=== PATIENT | male | born 1965 | race African-American/Black ===

== ENCOUNTER 2016-11-27 20:59 | Emergency (ER) | payer OTHER ==
[~2016-11-27] VITALS: Ht 185.4 cm; Wt 95.7 kg
[2016-11-27 21:01] VITALS: BP_SYST 140
[2016-11-27] MEDS: IBUPROFEN 800 MG TABLET PO ONE (22:32)
[2016-11-27] MEDS: SULFAMETHOXAZOLE/TRIMETHOPR DS 1 TABLET PO ONE (22:32)
[2016-11-27 22:36] VITALS: BP_SYST 133
== END 2016-11-27 22:36 | disposition home or self-care (01) ==
LOC: SED 20:59
DX: S02.2XXA Fracture of nasal bones, initial encounter for closed fracture (principal); R03.0 Elevated blood-pressure reading, without diagnosis of hypertension; W51.XXXA Accidental striking against or bumped into by another person, initial encounter; Y93.89 Activity, other specified; Y99.8 Other external cause status; Y92.89 Other specified places as the place of occurrence of the external cause
CPT/HCPCS: 70160-TC; 99284